=== PATIENT | male | born 1970 | race Caucasian/White ===

== ENCOUNTER → 2018-09-03 15:01 | Outpatient (CLI) | payer BC, SELFPAY ==
[2018-09-07 10:46] LABS: Semen Analysis Post Vas ABSENT
== END ==
PROVIDERS: Family Provider Family Medicine; PCP Family Medicine
DX: Z98.52 Vasectomy status (principal)
CPT/HCPCS: 89321

== ENCOUNTER 2021-02-08 11:23 | Outpatient (RCR) | payer BC, SELFPAY | END 2021-03-15 23:59 | LOC: IMMUN 11:23 | PROVIDERS: Referring Provider Family Medicine; Visit Provider Family Medicine | DX: Z23 Encounter for immunization (principal) | CPT/HCPCS: 0001A; 0002A; 91300 ==